=== PATIENT | female | born 1935 | race Caucasian/White ===

== ENCOUNTER → 2016-10-22 | Outpatient (CLI) | payer MEDICARE, BC ==
[2016-10-22 12:47] LABS: INR 2.8; PROTHROMBIN TIME (PATIENT) 30.7 SECONDS (9.6-11.5)
== END | disposition home or self-care (01) ==
LOC: CLAB 11:58
PROVIDERS: Internal Medicine Cardiovascular Disease
DX: I48.91 Unspecified atrial fibrillation (principal)
CPT/HCPCS: 36415; 85610

== ENCOUNTER → 2016-12-16 | Outpatient (CLI) | payer MEDICARE, BC ==
[2016-12-16 13:41] LABS: INR 4.2
== END | disposition home or self-care (01) ==
LOC: CLAB 12:17
PROVIDERS: Internal Medicine Cardiovascular Disease
DX: I48.91 Unspecified atrial fibrillation (principal)
CPT/HCPCS: 36415; 85610

== ENCOUNTER → 2016-12-23 | Outpatient (CLI) | payer MEDICARE, BC ==
[2016-12-23 14:24] LABS: INR 1.8
[2016-12-23 14:48] LABS: PROTHROMBIN TIME (PATIENT) 18.9 SECONDS (9.6-11.5)
== END | disposition home or self-care (01) ==
LOC: CLAB 13:32
PROVIDERS: Internal Medicine Cardiovascular Disease
DX: I48.91 Unspecified atrial fibrillation (principal)
CPT/HCPCS: 36415; 85610

== ENCOUNTER → 2017-01-07 | Outpatient (CLI) | payer MEDICARE, BC ==
[2017-01-07 14:44] LABS: INR 2.7
[2017-01-07 14:45] LABS: PROTHROMBIN TIME (PATIENT) 29.8 SECONDS (9.6-11.5)
== END | disposition home or self-care (01) ==
LOC: CLAB 13:50
PROVIDERS: Internal Medicine Cardiovascular Disease
DX: I48.91 Unspecified atrial fibrillation (principal)
CPT/HCPCS: 36415; 85610

== ENCOUNTER → 2017-02-03 | Outpatient (CLI) | payer MEDICARE, BC ==
[2017-02-03 15:23] LABS: INR 2.5; PROTHROMBIN TIME (PATIENT) 27.6 SECONDS (10.0-11.7)
== END | disposition home or self-care (01) ==
LOC: CLAB 14:13
PROVIDERS: Internal Medicine Cardiovascular Disease
DX: I48.91 Unspecified atrial fibrillation (principal)
CPT/HCPCS: 36415; 85610

== ENCOUNTER → 2017-03-28 | Outpatient (CLI) | payer MEDICARE, BC ==
[2017-03-28 14:21] LABS: PROTHROMBIN TIME (PATIENT) 22.1 SECONDS (10.0-11.7)
== END | disposition home or self-care (01) ==
LOC: CLAB 13:28
PROVIDERS: Internal Medicine Cardiovascular Disease
DX: I48.91 Unspecified atrial fibrillation (principal)
CPT/HCPCS: 36415; 85610

== ENCOUNTER → 2017-05-01 | Outpatient (CLI) | payer MEDICARE, BC ==
[2017-05-01 12:39] LABS: INR 1.9; PROTHROMBIN TIME (PATIENT) 20.5 SECONDS (10.0-11.7)
== END | disposition home or self-care (01) ==
LOC: CLAB 11:49
PROVIDERS: Internal Medicine Cardiovascular Disease
DX: I48.91 Unspecified atrial fibrillation (principal)
CPT/HCPCS: 36415; 85610